=== PATIENT | male | born 1950 | race Caucasian/White ===

== ENCOUNTER 2019-05-06 10:34 | Day surgery (SDC) | payer MEDICARE, BC ==
[~2019-05-06] VITALS: Ht 182.9 cm; Wt 87.6 kg
[2019-05-06] MEDS ORDERED: NONE PER PT (11:10)
[2019-05-06 11:26] VITALS: BP 125/80
[2019-05-06] MEDS ORDERED: PROPOFOL 50 ML ONE (11:50)
[2019-05-06] MEDS ORDERED: LACTATED RINGERS 1,000 ML IV SCH (12:00)
== END 2019-05-06 14:25 | disposition home or self-care (01) ==
LOC: OUT 10:34
PROVIDERS: ATTEND Internal Medicine Geriatric Medicine
DX: K22.8 Other specified diseases of esophagus (principal); K22.710 Barrett's esophagus with low grade dysplasia; K22.2 Esophageal obstruction; C77.2 Secondary and unspecified malignant neoplasm of intra-abdominal lymph nodes; C80.1 Malignant (primary) neoplasm, unspecified; Z90.49 Acquired absence of other specified parts of digestive tract
CPT/HCPCS: 43202; 43232; 88172; 88173; 88177; 88305; 93005; J2704; J7120